=== PATIENT | male | born 2000 | race Caucasian/White ===

== ENCOUNTER 2024-01-20 07:31 | Emergency (ER) | payer BC, OTHER ==
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
[2024-01-20] MEDS ORDERED: IBUPROFEN 400 MG TAB ONE (08:16)
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
--- NOTE | 2024-01-20 08:19 | RAD REPORT ---
EXAM: Hand Left 3 View HISTORY: left hand pain COMPARISON: None FINDINGS: Bones: No acute fracture identified. Alignment:No significant malalignment. Degenerative changes:None significant. Other: n/a IMPRESSION: No evidence of acute osseous abnormality involving the imaged hand.
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
[2024-01-20 09:49] VITALS: BP 135/65; TEMP 98; O2SAT 97
== END 2024-01-20 09:41 | disposition home or self-care (01) ==
LOC: ER 07:31
DX: S00.83XA Contusion of other part of head, initial encounter (principal); S60.222A Contusion of left hand, initial encounter; S50.12XA Contusion of left forearm, initial encounter; V59.40XA Driver of pick-up truck or van injured in collision with unspecified motor vehicles in traffic accident, initial encounter
CPT/HCPCS: 70450; 70486; 72125; 76377; 99283